=== PATIENT | female | born 1950 | race Two or more races ===

== ENCOUNTER → 2018-07-13 | Emergency (ER) | payer OTHER ==
[~2018-07-13] VITALS: Ht 167.6 cm; Wt 70.3 kg
[~2018-07-13] MED LIST: LISINOPRIL20 MG; METFORMIN HYDRO25 GM; SYNTHROID75 MCG
== END | disposition home or self-care (01) ==
LOC: EMR PED 12:16 → ER 12:30 → EMR PED 12:30
DX: J40 Bronchitis, not specified as acute or chronic (principal); R06.2 Wheezing; J11.1 Influenza due to unidentified influenza virus with other respiratory manifestations

== ENCOUNTER 2021-03-15 05:11 | Day surgery (SDC) | payer OTHER | END 2021-03-15 09:35 | disposition home or self-care (01) | LOC: CIR.AMB 05:11 | PROVIDERS: ATTEND Surgery Surgery of the Hand | DX: M65.841 Other synovitis and tenosynovitis, right hand (principal); M24.641 Ankylosis, right hand; Z20.822 Contact with and (suspected) exposure to COVID-19 ==

== ENCOUNTER 2021-09-27 05:20 | Day surgery (SDC) | payer OTHER | END 2021-09-27 09:55 | disposition home or self-care (01) | LOC: CIR.AMB 05:20 | PROVIDERS: ATTEND Surgery Surgery of the Hand | DX: M67.843 Other specified disorders of tendon, right hand (principal) ==

== ENCOUNTER 2022-03-14 05:25 | Day surgery (SDC) | payer OTHER ==
[~2022-03-14] VITALS: Ht 167.6 cm; Wt 68.0 kg
== END 2022-03-14 09:50 | disposition home or self-care (01) ==
LOC: CIR.AMB 05:25
PROVIDERS: ATTEND Surgery Surgery of the Hand
DX: M65.842 Other synovitis and tenosynovitis, left hand (principal); Z20.822 Contact with and (suspected) exposure to COVID-19; I10 Essential (primary) hypertension; E11.9 Type 2 diabetes mellitus without complications; Z79.84 Long term (current) use of oral hypoglycemic drugs

== ENCOUNTER 2024-12-27 08:59 | Emergency (ER) | payer OTHER ==
[~2024-12-27] VITALS: Ht 167.6 cm; Wt 68.0 kg
[2024-12-27] MEDS ORDERED: KETOROLAC TROMETHAMINE 60 MG VIAL IM STA (09:54)
[2024-12-27] MEDS ORDERED: CEFTRIAXONE SODIUM 1,000 MG VIAL IM STA (09:56)
[2024-12-27] MEDS ORDERED: CEFTRIAXONE SODIUM 1,000 MG VIAL ONE (10:16)
[2024-12-27] MEDS ORDERED: KETOROLAC TROMETHAMINE 60 MG VIAL IM ONE (10:16)
[2024-12-27] MEDS ORDERED: LIDOCAINE HCL 1% 10ML VIAL ONE (10:18)
[2024-12-27 10:46] LABS: HEMATOCRIT 38.3 % (36.0-45.00); HEMOGLOBIN 12.9 g/dL (12.0-15.00); MEAN CELL VOLUME 87.6 fL (80.00-100.00); MEAN CORPUSCULAR HEMOGLOBIN 29.5 pg (27.00-32.0); MEAN CORPUSCULAR HGB CONC 33.7 g/dl (32.0-36.0); PLATELET COUNT 204 K/uL (150-450); RED BLOOD COUNT 4.38 M/uL (4.00-6.00); RED CELL DISTRIBUTION WIDTH 13.1 % (11.5-14.5)
== END 2024-12-27 13:16 | disposition home or self-care (01) ==
LOC: ER 08:59
PROVIDERS: General Practice
DX: H66.93 Otitis media, unspecified, bilateral (principal); I10 Essential (primary) hypertension; Z79.84 Long term (current) use of oral hypoglycemic drugs
CPT/HCPCS: 36415; 70210; 96372; 99283; J0696; J1885

== ENCOUNTER 2025-07-13 10:00 | Day surgery (SDC) | payer OTHER ==
[2025-07-08 09:10] LABS: URINE APPEARANCE Clear; URINE BILIRRUBIN Negative (NEGATIVE); URINE BLOOD Negative; URINE COLOR Yellow; URINE GLUCOSE Negative (NEGATIVE); URINE KETONE Negative (NEGATIVE); URINE LEUKOCYTE Negative; URINE NITRATE Negative; URINE PROTEIN Negative (NEGATIVE); URINE UROBILINOGEN 0.2 E.U./dl
[2025-07-08 09:19] LABS: URINE BACTERIA 1.1 uL (0.0-1933); URINE CAST 0.00 uL (0.0-1.40); URINE EPITHELIAL CELLS 0.4 uL (0.0-38.8); URINE RBC 0.2 uL (0.0-20.8); URINE WBC 0.6 uL (0.0-23.2)
[2025-07-08 09:29] VITALS: BP 160/80
[2025-07-08 09:45] LABS: INR 1.0
[~2025-07-13] VITALS: Ht 167.6 cm; Wt 68.0 kg
[~2025-07-13 10:00] MED LIST changes: +AMLODIPINE-OLM1 EAC2 PO; +BISOPROLOL FUMAR5 MG PO; +JANUMET 50-5001 EACH PO
[2025-07-13] MEDS ORDERED: CEFAZOLIN SODIUM 1,000 MG VIAL IV ONE (12:45)
[2025-07-13] MEDS ORDERED: CEFAZOLIN SODIUM 1,000 MG VIAL IV SCH (13:45)
== END 2025-07-13 15:50 | disposition home or self-care (01) ==
LOC: AMB-ENDOS 10:00 → SURH 07-27 08:15 → EDSTATUS 07-27 14:41 → AMB-ENDOS 07-27 14:42
PROVIDERS: ATTEND Specialist
DX: D24.2 Benign neoplasm of left breast (principal); R92.1 Mammographic calcification found on diagnostic imaging of breast; N60.92 Unspecified benign mammary dysplasia of left breast; D48.62 Neoplasm of uncertain behavior of left breast